=== PATIENT | female | born 1960 | race Caucasian/White ===

== ENCOUNTER 2021-06-21 06:16 | Day surgery (SDC) | payer BC ==
[2021-06-16 12:05] VITALS: BMI 34.6
[2021-06-21] MEDS ORDERED: Lidocaine 1% MPF 2 ML VIAL ONE (07:15)
[2021-06-21] MEDS ORDERED: Lidocaine 1% PF 5 ML VIAL ONE (08:06)
[2021-06-21] MEDS ORDERED: PROPOFOL 60 ML ONE (08:06)
== END 2021-06-21 09:06 | disposition home or self-care (01) ==
LOC: CSHSDC 06:16
PROVIDERS: ATTEND Internal Medicine Gastroenterology
PROC: 0DBK8ZZ Excision of Ascending Colon, Via Natural or Artificial Opening Endoscopic (ICD-10-PCS; principal; 2021-06-21)
DX: Z12.11 Encounter for screening for malignant neoplasm of colon (principal); K63.5 Polyp of colon; K57.30 Diverticulosis of large intestine without perforation or abscess without bleeding; K64.9 Unspecified hemorrhoids; K21.9 Gastro-esophageal reflux disease without esophagitis; K58.9 Irritable bowel syndrome, unspecified
CPT/HCPCS: 88305; J2704